=== PATIENT | female | born 1970 | race Caucasian/White ===

== ENCOUNTER 2019-03-15 07:12 | Day surgery (SDC) | payer OTHER ==
[2019-03-15 07:58] VITALS: BMI 28.3
[2019-03-15 08:41] VITALS: TEMP 97.9
[2019-03-15 09:26] VITALS: BP 118/61; PULSE 64
== END 2019-03-15 09:38 | disposition home or self-care (01) ==
LOC: JASU-ENDO 07:12
PROVIDERS: ATTEND Internal Medicine Gastroenterology
PROC: 0DJD8ZZ Inspection of Lower Intestinal Tract, Via Natural or Artificial Opening Endoscopic (ICD-10-PCS; principal; 2019-03-15 08:00)
DX: Z12.11 Encounter for screening for malignant neoplasm of colon (principal); Z83.71 Family history of colonic polyps